=== PATIENT | female | born 1965 | race Caucasian/White ===

== ENCOUNTER → 2021-10-11 | Outpatient (CLI) | payer OTHER ==
[~2021-10-11] MED LIST: AMIT50TA PO; ATOR20TA PO; CETI10TA74 PO; FLUT1BLS3 IH; LEVO137T44 PO; LISI10TA16 PO; LISI1TAB37 PO; METF500T16 PO
--- NOTE | 2021-10-11 13:04 | PDOC1 ---
INITIAL PAIN CONSULT DATE OF SERVICE: DOS: DATE: 10/11/21 TIME: 12:57 CHIEF COMPLAINT: Chief Complaint: Left flank pain HISTORY OF PRESENT ILLNESS: 56-year-old female presents with history of pain in the left flank status post a left thoracotomy for a lung resection secondary to pulmonary carcinoma about 1- 1/2 years ago. Patient reports has had pain since the surgery it was gotten worse with time and has become radiating more anteriorly to the midline on the left side patient reports also some pain in the back in the same region as the scar in the previous surgery on the left thorax also some pain on the right side with the raising her arm to the side on the right which she is able to do more than the left side without pain but significant on the left side with a new movement of the arm or shoulder. Patient reports its a sharp pain is throbbing aching radiating to the front on the left side following the path of the thoracic cage and ribs patient reports some numbness involved as well and it can radiate up into the middle back and shoulder more on the left side as well. Patient reports a cramping sensation also also some pain on the right shoulder with abduction of the right arm. Patient reports it wakes her from sleep multiple times during the night she is tossing and turning try to get sleep because of the left flank pain and right flank pain can affect her bowel bladder control but no loss of continence and affect her ability to walk and she feels unstable when she is using a cane which she has with her today in her right hand. 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 PAST MEDICAL HISTORY: PMH: Pulmonary carcinoma, COPD, hypertension, arthritis, dizziness PREVIOUS SURGERIES: Past Surgical Hx: Hysterectomy, angioplasty, multiple biopsies, left lung resection, bladder cancer excision CURRENT MEDICATIONS: Current Meds: Active Scripts Medications Dose Route/Sig Max Daily Dose Days Date Category Trelegy Ellipta 100-62.5-25 (Fluticasone/Umeclidin/Vilanter) 1 Each Blst.w.dev 1 Each IH PRN 10/11/21 Reported Metformin Hcl 500 Mg Tablet 500 Mg PO HS 10/11/21 Reported Synthroid (Levothyroxine Sodium) 137 Mcg Tablet 1 Tab PO DAILY 10/11/21 Reported Lisinopril-Hctz 20-12.5 Mg Tab (Lisinopril/Hydrochlorothiazide) 1 Each Tablet 1 Tab PO DAILY 10/11/21 Reported Zyrtec (Cetirizine Hcl) 10 Mg Tablet 10 Mg PO PRN 10/11/21 Reported Lisinopril 10 Mg Tablet 10 Mg PO HS 10/11/21 Reported Lipitor (Atorvastatin Calcium) 20 Mg Tablet 20 Mg PO HS 10/11/21 Reported Amitriptyline Hcl 50 Mg Tablet 1 Tab PO QHS 10/11/21 Reported ALLERGIES; Allergies: Coded Allergies: No Known Drug Allergies (Unverified , 02/03/17) FAMILY HISTORY: Family Hx: Heart disease, cancers SOCIAL HISTORY: Social Hx: Patient is under alcohol, patient continues to smoke less than a pack a day but has for 20+ years does not use any illegal licit recreational drugs, is lives locally in [facility]. REVIEW OF SYSTEMS: ROS: Positive for those items mentioned in history of present illness, all systems are reviewed, otherwise negative ,and are complete full and well-documented on patient's chart. PHYSICAL EXAM: VS: Blood pressure is 134/98 pulse 85 respirations 18 temperature 98.1 F height is 5 feet 3 inches weight is 217 pounds. PE: PHYSICAL EXAMINATION: GENERAL: The patient is awake, alert, oriented, appropriate, very pleasant in demeanor HEENT: Shows normocephalic, atraumatic. Extraocular movements are intact and symmetrical. Oral cavity: Mucous membranes moist and pink. Dentition is intact. NECK: Shows anterior throat supple without palpable lymphadenopathy noted. Swallow reflex symmetrical. CHEST: Shows normal on inspection. Previously well-healed surgical scar on the left thorax consistent with patient's history of thoracotomy. Significant tenderness in the mid and inferior aspect of the thoracic cage with palpation posteriorly laterally and anteriorly no significant mid axillary line or slightl y posterior to this on the left side very tender without specific abnormalities palpated such as rib abnormalities or fractures. Right side shows some moderate tenderness only in the mid axillary line more in the musculature then in the actual ribs with palpation. Breath sounds are clear bilaterally, no rales rhonchi or wheezes auscultated. HEART: Shows S1, S2 clear. No murmurs auscultated. ABDOMEN: Soft, nontender, nondistended. No palpable organomegaly is noted. BACK: Shows spine grossly in the midline. Normal-appearing cervical lordotic curvature. There is slightly increased thoracic kyphosis, some minor flattening of the lumbar lordotic curvature. Lumbar paraspinous muscles show symmetrical on inspection, on palpation shows some moderate tenderness diffusely throughout the upper, middle and lower distribution of the paraspinous muscles without specific trigger points, without radiation of pain. The patient has good rotational motion of the lumbar spine, both laterally as well as extension and flexion without significant difficulty. No tenderness over the spinous processes, sacrum or sacroiliac regions. EXTREMITIES: Lower extremities show deep tendon reflexes 1+ in the patellar and tendo calcaneus tendons. Motor exam is 4 on a scale of 5 with right dorsiflexion, extension, quadriceps and hamstring flexion and 5/5 on the left. Peripheral pulses are 1+ posterior tibial. No peripheral edema is noted bilaterally. 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 With abduction of the shoulder significant tenderness on the left even past 30 to 45 degrees abduction right side shows significant abduction but can be performed at 90 degrees. SKIN: Shows warm and dry, good turgor. No edema. No sores, rashes or bruising throughout. IMPRESSION: Impression: 56-year-old female with history of left thoracotomy for breath pulmonary carcinoma lung resection with resultant post thoracotomy pain, chronic Hypertension Shortness of breath COPD Arthritis Dizziness Cigarette smoking Plan: Options were discussed with the patient including serve medical management physical therapies and interventional techniques. Patient elects interventional techniques. We discussed intercostal blocks using description as well as anatomical models to describe the procedure. Patient will wait for preauthorization with return provider once obtained, will have patient return for left-sided intercostal blocks T9-T12 with fluoroscopic guidance. In the meantime, he will continue with stretching strength exercises, and oral analgesics as currently. MARTA JOSEPH MD Oct 11, 2021 13:04
== END | disposition home or self-care (01) ==
LOC: PNCL 09:16
PROVIDERS: ATTEND Anesthesiology
DX: R10.9 Unspecified abdominal pain (principal); I10 Essential (primary) hypertension; J44.9 Chronic obstructive pulmonary disease, unspecified; M19.90 Unspecified osteoarthritis, unspecified site; Z90.710 Acquired absence of both cervix and uterus; Z98.890 Other specified postprocedural states; Z87.891 Personal history of nicotine dependence
CPT/HCPCS: 99214; G0463